=== PATIENT | female | born 1985 | race Caucasian/White ===

== ENCOUNTER 2020-11-09 22:00 | Emergency (ER) | payer MEDICAID ==
[~2020-11-09] VITALS: Ht 167.6 cm; Wt 69.0 kg
[2020-11-09] MEDS ORDERED: METHYLPREDNISOLONE SOD SUCC 125 MG/2 ML VIAL IV ONE (22:30)
[2020-11-09] MEDS ORDERED: FAMOTIDINE 20MG/2ML VIAL IV ONE (22:30)
[2020-11-09] MEDS ORDERED: DIPHENHYDRAMINE 50MG/ML VIAL IV ONE (22:30)
[2020-11-09] MEDS ORDERED: EPINEPHRINE 1:1000 1 MG/ML AMP INJ ONE (22:30)
[2020-11-09] MEDS ORDERED: ACETAMINOPHEN 500MG TABLET PO NR (23:45)
[2020-11-09] MEDS ORDERED: ACETAMINOPHEN 650MG/20.3ML UDC PO ONE (23:45)
[2020-11-09] MEDS ORDERED: DIPH25CA83 MT ×2 (23:48→23:51)
[2020-11-09] MEDS ORDERED: FAMO-135 PO (23:50)
[2020-11-09] MEDS ORDERED: P50 MT (23:50)
[2020-11-09] MEDS ORDERED: FAMO-135 MT (23:50)
[2020-11-09] MEDS ORDERED: EPIN0.3P3 IM (23:53)
[2020-11-10 01:04] VITALS: BP 100/62
== END 2020-11-10 02:11 | disposition home or self-care (01) ==
LOC: ER 22:00
DX: T78.40XA Allergy, unspecified, initial encounter (principal); X58.XXXA Exposure to other specified factors, initial encounter; F17.210 Nicotine dependence, cigarettes, uncomplicated
CPT/HCPCS: 96374; 96375; 99284; J1200; J2930; J3490